=== PATIENT | male | born 1945 | race Hispanic/Latino ===

== ENCOUNTER 2022-07-01 12:35 | Observation (INO) | payer MEDICARE ==
[~2022-07-01] VITALS: Ht 172.7 cm; Wt 68.0 kg
[2022-07-01 13:17] LABS: BASOPHILS # (AUTO) 0.1 (0.0-0.1); BASOPHILS % 0.9 % (0.0-1.0); EOSINOPHILS # (AUTO) 0.4 (0.0-0.4); EOSINOPHILS % 4.5 % (0.0-6.0); LYMPHOCYTES # (AUTO) 2.3 (1.0-3.2); LYMPHOCYTES % 23.4 % (18.0-39.1); MEAN CORPUSCULAR HGB CONC 27.3 g/dL (31-35); MEAN CORPUSCULAR VOLUME 62.3 fL (81-99); MONOCYTES % 10.5 % (4.4-11.3); NEUTROPHILS # (AUTO) 5.8 (2.1-6.9); NEUTROPHILS % 60.4 % (38.7-80.0); PLATELET COUNT 517 x10e3/uL (140-360); RED BLOOD COUNT 3.53 x10e6/uL (4.3-5.7); RED CELL DISTRIBUTION WIDTH 21.2 % (11.7-14.4)
[2022-07-01 13:42] LABS: ALBUMIN 3.4 g/dL (3.5-5.0); ALBUMIN/GLOBULIN RATIO 0.9 (0.8-2.0); ANION GAP 11.4 mmol/L (8-16); CALCIUM 8.3 mg/dL (8.4-10.2); CREATININE, SERUM 0.89 mg/dL (0.72-1.25); POTASSIUM 4.4 mmol/L (3.5-5.1)
[2022-07-01 14:46] LABS: CLARITY,URINE CLEAR (CLEAR); COLOR,URINE YELLOW (YELLOW)
[2022-07-01 14:47] LABS: KETONES,URINE NEGATIVE (NEGATIVE); LEUKOCYTE ESTERASE ,URINE NEGATIVE (NEGATIVE); NITRITE,URINE NEGATIVE (NEGATIVE); PROTEIN,URINE DIPSTICK NEGATIVE (NEGATIVE); URINE UROBILINOGEN 0.2 mg/dL (0.2 - 1)
[2022-07-01 14:55] LABS: MICROCYTOSIS MODERATE; PLATELET MORPHOLOGY COMMENT NORMAL
[2022-07-01 14:56] LABS: PLATELET ESTIMATE MODERATELY INCREASED
[2022-07-01 14:58] LABS: WBC,URINE (MAN) 0-5 /HPF (0-5)
[2022-07-01] MEDS ORDERED: SODIUM CHLORIDE FLUSH 10 ML SYR INJ PRN (15:00)
[2022-07-01] MEDS ORDERED: ONDANSETRON HCL INJ 2MG/ML 2ML 2 MG/ML VIAL IV PRN (15:00)
[2022-07-01] MEDS ORDERED: SODIUM CHLORIDE 0.9% 250ML 250 ML IV ONE (15:30)
[2022-07-01 16:30] VITALS: BP 132/59
[2022-07-01] MEDS ORDERED: GLIPIZIDE ER5 MG PO (17:38)
[2022-07-01] MEDS ORDERED: LOVASTATIN10 MG PO (17:38)
[2022-07-01] MEDS ORDERED: COREG6.25 MG PO (17:38)
[2022-07-01] MEDS ORDERED: SODIUM CHLORIDE 0.9% 250ML 0 ML ONE (19:49)
[2022-07-01] MEDS ORDERED: SODIUM CHLORIDE 0.9% 250ML 250 ML ONE (19:54)
[2022-07-01 20:00] VITALS: BP 137/52
[2022-07-02] VITALS (10 sets, daily range): BP systolic 133–189; BP diastolic 57–78
[2022-07-02 05:15] LABS: BASOPHILS # (AUTO) 0.1 (0.0-0.1); BASOPHILS % 0.8 % (0.0-1.0); EOSINOPHILS # (AUTO) 0.5 (0.0-0.4); EOSINOPHILS % 5.4 % (0.0-6.0); HEMATOCRIT 29.3 % (38.2-49.6); HEMOGLOBIN 8.8 g/dL (14.0-18.0); LYMPHOCYTES # (AUTO) 2.3 (1.0-3.2); LYMPHOCYTES % 23.7 % (18.0-39.1); MEAN CORPUSCULAR HEMOGLOBIN 19.9 pg (28-32); MEAN CORPUSCULAR VOLUME 66.3 fL (81-99); MONOCYTES % 10.5 % (4.4-11.3); NEUTROPHILS # (AUTO) 5.7 (2.1-6.9); NEUTROPHILS % 59.3 % (38.7-80.0); PLATELET COUNT 438 x10e3/uL (140-360); RED BLOOD COUNT 4.42 x10e6/uL (4.3-5.7); RED CELL DISTRIBUTION WIDTH 24.8 % (11.7-14.4)
[2022-07-02 05:31] LABS: ANION GAP 10.8 mmol/L (8-16); CALCIUM 8.5 mg/dL (8.4-10.2); CREATININE, SERUM 0.77 mg/dL (0.72-1.25); POTASSIUM 3.8 mmol/L (3.5-5.1)
[2022-07-02 05:50] LABS: MAGNESIUM 1.7 MG/DL (1.3-2.1); PHOSPHORUS 2.6 MG/DL (2.3-4.7)
[2022-07-02 06:03] LABS: CHOL/HDL RATIO 3.1 (3.9-4.7)
[2022-07-02] MEDS: CARVEDILOL 3.125 MG TAB PO SCH ×2 (08:42→17:06)
[2022-07-02] MEDS ORDERED: NON-FORMULARY MEDICATION (Lovastatin 20 MG) PO SCH (09:00)
[2022-07-02 15:15] LABS: FERRITIN 12.34 ng/mL (21.81-274.66)
[2022-07-02] MEDS ORDERED: SIMVASTATIN 20 MG TAB PO SCH (21:00)
[2022-07-03] VITALS: BP 135/58
[2022-07-03 04:00] VITALS: BP 150/78
[2022-07-03 05:23] LABS: HEMATOCRIT 31.5 % (38.2-49.6); HEMOGLOBIN 9.4 g/dL (14.0-18.0)
[2022-07-03 05:54] LABS: MAGNESIUM 1.7 MG/DL (1.3-2.1); PHOSPHORUS 2.9 MG/DL (2.3-4.7)
[2022-07-03] MEDS ORDERED: PANTOPRAZOLE SOD 40 MG TABEC PO SCH (07:30)
[2022-07-03 08:30] VITALS: BP 149/95
[2022-07-03 08:32] VITALS: BP 149/95
[2022-07-03] MEDS: CARVEDILOL 3.125 MG TAB PO SCH ×2 (09:13→16:25)
[2022-07-03 11:49] VITALS: BP 97/57
[2022-07-03] MEDS ORDERED: PANTOPRAZOLE SO40 MG PO (15:21)
[2022-07-03] MEDS ORDERED: ONDANSETRON HCL 4 MG ORAL DISINTEGRATING TAB PO PRN (16:00)
[2022-07-03 16:06] VITALS: BP 160/62
== END 2022-07-03 17:15 | disposition home or self-care (01) ==
LOC: ER 12:40 → ERHOLD 14:55 → MED/SURG3 16:12
PROVIDERS: ADMIT Internal Medicine; ATTEND Internal Medicine
DX: D64.9 Anemia, unspecified (principal); R41.82 Altered mental status, unspecified; I10 Essential (primary) hypertension; E78.5 Hyperlipidemia, unspecified; E11.9 Type 2 diabetes mellitus without complications; I69.351 Hemiplegia and hemiparesis following cerebral infarction affecting right dominant side; Z20.822 Contact with and (suspected) exposure to COVID-19
CPT/HCPCS: 36415 ×2; 36430; 70450; 71045; 80048; 80053; 80061; 81001; 82140; 82607; 82728; 82948 ×3; 83036; 83540; 83735 ×2; 84100 ×2; 84466; 84484; 85014; 85018; 85025 ×2; 86850; 86900; 86920; 93005; 94760; 96360; 97116 ×2; 97163; 97530 ×2; 99284; C9113; G0378 ×3; J7050; P9016; S0164; U0002

== ENCOUNTER 2022-09-25 07:25 | Inpatient (IN) | payer MEDICARE ==
[~2022-09-25] VITALS: Ht 172.7 cm; Wt 60.9 kg
[2022-09-25] VITALS (20 sets, daily range): BP systolic 109–165; BP diastolic 54–131
[~2022-09-25 07:25] MED LIST: COREG6.25 MG PO; GLIPIZIDE ER5 MG PO; LOVASTATIN10 MG PO; PANTOPRAZOLE SO40 MG PO; VIT B12 PO; VIT D PO
[2022-09-25 10:26] LABS: HEMATOCRIT 25.4 % (38.2-49.6); HEMOGLOBIN 7.3 g/dL (14.0-18.0)
[2022-09-25] MEDS ORDERED: MINERAL OIL STERILE 10ML VIAL ONE (11:27)
[2022-09-25] MEDS ORDERED: ROCURONIUM BROMIDE 10 MG/ML 5ML VIAL IV ONE (12:25)
[2022-09-25] MEDS ORDERED: POVIDONE IODINE 0.05% 0.05 % ML PO ONE (12:25)
[2022-09-25] MEDS ORDERED: NEOSTIGMINE 1 MG/ML 10ML VIAL ONE (12:25)
[2022-09-25] MEDS ORDERED: HYDRALAZINE HCL 20 MG/ML VIAL ONE (12:25)
[2022-09-25] MEDS ORDERED: PROPOFOL IV EMULSION 10 MG/ML 20 ML VIAL ONE (12:25)
[2022-09-25] MEDS ORDERED: GLYCOPYRROLATE INJ 0.2 MG/ML VIAL ONE (12:25)
[2022-09-25] MEDS ORDERED: LIDOCAINE HCL 2% LOCAL INJ 5 ML SDV VIAL INJ ONE (12:25)
[2022-09-25] MEDS ORDERED: SEVOFLURANE INHAL SOLN 250 ML PEN BTL ONE (12:25)
[2022-09-25] MEDS ORDERED: METOCLOPRAMIDE HCL 10 MG/2ML VIAL ONE (12:25)
[2022-09-25] MEDS ORDERED: ONDANSETRON HCL INJ 2MG/ML 2ML 2 MG/ML VIAL ONE (12:25)
[2022-09-25] MEDS ORDERED: SUGAMMADEX SODIUM 200 MG/2 ML VIAL IV ONE (13:54)
[2022-09-25] MEDS ORDERED: SODIUM CHLORIDE 0.9% 1000ML 1,000 ML IV SCH (14:00)
[2022-09-25] MEDS ORDERED: HYDROMORPHONE 1MG/1ML INJ IV PRN (14:00)
[2022-09-25] MEDS ORDERED: ONDANSETRON HCL INJ 2MG/ML 2ML 2 MG/ML VIAL IV PRN ×2 (14:00→15:45)
[2022-09-25] MEDS ORDERED: ACETAMINOPHEN 1000 MG/100 ML IV PRN (14:00)
[2022-09-25] MEDS ORDERED: SODIUM CHLORIDE 0.9% 250ML IRRIG IR SCH (14:00)
[2022-09-25] MEDS ORDERED: HYDROMORPHONE 1MG/1ML INJ ONE (14:42)
[2022-09-25] MEDS: SODIUM CHLORIDE 0.9% 250ML IRRIG IR SCH ×3 (14:45→22:22)
[2022-09-25] MEDS ORDERED: DEXTROSE 50% SYRINGE 50 ML IV PRN (16:45)
[2022-09-25] MEDS ORDERED: CARVEDILOL 3.125 MG TAB PO SCH (17:00)
[2022-09-25] MEDS: CARVEDILOL 3.125 MG TAB PO SCH (17:31)
[2022-09-25] MEDS: SODIUM CHLORIDE 0.9% 1000ML 1,000 ML IV SCH (17:32)
[2022-09-25] MEDS ORDERED: FENTANYL CITRATE/PF 100MCG/2 ML INJ ONE (17:35)
[2022-09-25] MEDS: HYDROMORPHONE 1MG/1ML INJ IV PRN (17:36)
[2022-09-25] MEDS ORDERED: INSULIN REGULAR, HUMAN 100 UNIT/1 ML SQ SCH (18:00)
[2022-09-25] MEDS: INSULIN REGULAR, HUMAN 100 UNIT/1 ML SQ SCH (18:00)
[2022-09-25] MEDS: ACETAMINOPHEN 1000 MG/100 ML IV PRN (19:51)
[2022-09-26] VITALS (41 sets, daily range): BP systolic 126–189; BP diastolic 55–153
[2022-09-26] MEDS: HYDROMORPHONE 1MG/1ML INJ IV PRN ×4 (00:08→22:00)
[2022-09-26] MEDS: SODIUM CHLORIDE 0.9% 250ML IRRIG IR SCH ×6 (01:00→22:45)
[2022-09-26] MEDS: SODIUM CHLORIDE 0.9% 1000ML 1,000 ML IV SCH ×2 (01:00→14:36)
[2022-09-26] MEDS: ACETAMINOPHEN 1000 MG/100 ML IV PRN (02:36)
[2022-09-26] MEDS: INSULIN REGULAR, HUMAN 100 UNIT/1 ML SQ SCH ×4 (06:00→18:00)
[2022-09-26] MEDS: CARVEDILOL 3.125 MG TAB PO SCH ×2 (12:00→19:26)
[2022-09-26] MEDS ORDERED: CLONIDINE HCL 0.1 MG/24 HR 1 EA PATCH TOP SCH (14:00)
[2022-09-26 14:09] LABS: BASOPHILS % 0.2 % (0.0-1.0); EOSINOPHILS % 0.1 % (0.0-6.0); HEMATOCRIT 33.5 % (38.2-49.6); HEMOGLOBIN 10.8 g/dL (14.0-18.0); LYMPHOCYTES # (AUTO) 1.4 (1.0-3.2); LYMPHOCYTES % 10.9 % (18.0-39.1); MEAN CORPUSCULAR HEMOGLOBIN 23.8 pg (28-32); MEAN CORPUSCULAR HGB CONC 32.2 g/dL (31-35); MONOCYTES # (AUTO) 0.9 (0.2-0.8); MONOCYTES % 7.5 % (4.4-11.3); NEUTROPHILS # (AUTO) 10.1 (2.1-6.9); NEUTROPHILS % 80.7 % (38.7-80.0); PLATELET COUNT 436 x10e3/uL (140-360); RED BLOOD COUNT 4.53 x10e6/uL (4.3-5.7); RED CELL DISTRIBUTION WIDTH 19.7 % (11.7-14.4)
[2022-09-26 14:22] LABS: ANION GAP 13.7 mmol/L (8-16); CALCIUM 8.6 mg/dL (8.4-10.2); CREATININE, SERUM 0.75 mg/dL (0.72-1.25); POTASSIUM 3.7 mmol/L (3.5-5.1)
[2022-09-26] MEDS: NICARDIPINE 20MG/200ML PREMIX 200 ML IV SCH (21:46)
[2022-09-26] MEDS: INSULIN GLARGINE 100 UNITS/ML VIAL SQ SCH (21:47)
[2022-09-27] VITALS (50 sets, daily range): BP systolic 110–166; BP diastolic 49–107
[2022-09-27] MEDS: SODIUM CHLORIDE 0.9% 250ML IRRIG IR SCH ×3 (02:35→10:45)
[2022-09-27] MEDS: SODIUM CHLORIDE 0.9% 1000ML 1,000 ML IV SCH ×3 (02:35→16:52)
[2022-09-27 04:57] LABS: BASOPHILS % 0.2 % (0.0-1.0); EOSINOPHILS % 0.1 % (0.0-6.0); HEMATOCRIT 36.3 % (38.2-49.6); HEMOGLOBIN 11.4 g/dL (14.0-18.0); LYMPHOCYTES # (AUTO) 1.7 (1.0-3.2); MEAN CORPUSCULAR HEMOGLOBIN 24.2 pg (28-32); MEAN CORPUSCULAR HGB CONC 31.4 g/dL (31-35); MEAN CORPUSCULAR VOLUME 76.9 fL (81-99); MONOCYTES # (AUTO) 1.2 (0.2-0.8); MONOCYTES % 8.2 % (4.4-11.3); NEUTROPHILS # (AUTO) 11.2 (2.1-6.9); NEUTROPHILS % 79.1 % (38.7-80.0); PLATELET COUNT 449 x10e3/uL (140-360); RED BLOOD COUNT 4.72 x10e6/uL (4.3-5.7); RED CELL DISTRIBUTION WIDTH 19.7 % (11.7-14.4)
[2022-09-27 05:16] LABS: ALBUMIN 3.2 g/dL (3.5-5.0); ALBUMIN/GLOBULIN RATIO 0.9 (0.8-2.0); ANION GAP 17.6 mmol/L (8-16); CALCIUM 8.7 mg/dL (8.4-10.2); CREATININE, SERUM 0.73 mg/dL (0.72-1.25); POTASSIUM 3.6 mmol/L (3.5-5.1)
[2022-09-27] MEDS: NICARDIPINE 20MG/200ML PREMIX 200 ML IV SCH (05:35)
[2022-09-27] MEDS: INSULIN REGULAR, HUMAN 100 UNIT/1 ML SQ SCH ×4 (05:36→17:59)
[2022-09-27] MEDS: CARVEDILOL 3.125 MG TAB PO SCH ×2 (08:26→16:37)
[2022-09-27 10:35] LABS: % IRON SATURATION 4 % (15-50); IRON 15 ug/dL (65-175); TOTAL IRON BINDING CAPACITY 414 ug/dL (261-478); TRANSFERRIN 296 mg/dL (174-364)
[2022-09-27] MEDS: HYDROMORPHONE 1MG/1ML INJ IV PRN ×2 (10:47→15:37)
[2022-09-27] MEDS: BISACODYL 10 MG SUPP PR SCH (21:23)
[2022-09-27] MEDS: INSULIN GLARGINE 100 UNITS/ML VIAL SQ SCH (21:29)
[2022-09-28] VITALS (11 sets, daily range): BP systolic 128–190; BP diastolic 57–139
[2022-09-28] MEDS: HYDROMORPHONE 1MG/1ML INJ IV PRN ×2 (00:26→07:51)
[2022-09-28] MEDS: SODIUM CHLORIDE 0.9% 1000ML 1,000 ML IV SCH ×2 (01:05→12:18)
[2022-09-28] MEDS: INSULIN REGULAR, HUMAN 100 UNIT/1 ML SQ SCH ×4 (06:00→18:06)
[2022-09-28 07:50] LABS: BASOPHILS % 0.2 % (0.0-1.0); EOSINOPHILS # (AUTO) 0.1 (0.0-0.4); EOSINOPHILS % 0.8 % (0.0-6.0); HEMATOCRIT 37.3 % (38.2-49.6); HEMOGLOBIN 11.3 g/dL (14.0-18.0); LYMPHOCYTES # (AUTO) 1.7 (1.0-3.2); LYMPHOCYTES % 12.2 % (18.0-39.1); MEAN CORPUSCULAR HEMOGLOBIN 23.7 pg (28-32); MEAN CORPUSCULAR HGB CONC 30.3 g/dL (31-35); MEAN CORPUSCULAR VOLUME 78.4 fL (81-99); MONOCYTES # (AUTO) 1.1 (0.2-0.8); NEUTROPHILS % 78.4 % (38.7-80.0); PLATELET COUNT 417 x10e3/uL (140-360); RED BLOOD COUNT 4.76 x10e6/uL (4.3-5.7)
[2022-09-28 08:02] LABS: ALBUMIN/GLOBULIN RATIO 0.8 (0.8-2.0); ANION GAP 16.3 mmol/L (8-16); CALCIUM 8.8 mg/dL (8.4-10.2); CREATININE, SERUM 0.73 mg/dL (0.72-1.25); POTASSIUM 3.3 mmol/L (3.5-5.1)
[2022-09-28] MEDS: BISACODYL 10 MG SUPP PR SCH (08:02)
[2022-09-28] MEDS: CARVEDILOL 3.125 MG TAB PO SCH ×2 (08:02→17:56)
[2022-09-28] MEDS ORDERED: POTASSIUM CHLORIDE 20MEQ/100ML 100 ML IV ONE (12:30)
[2022-09-28] MEDS ORDERED: HYDROCODONE/APAP 5MG-325MG TAB PO PRN (17:45)
[2022-09-28] MEDS: INSULIN GLARGINE 100 UNITS/ML VIAL SQ SCH (20:36)
[2022-09-29] VITALS (8 sets, daily range): BP systolic 117–183; BP diastolic 57–86
[2022-09-29] MEDS: SODIUM CHLORIDE 0.9% 1000ML 1,000 ML IV SCH ×2 (01:18→22:55)
[2022-09-29] MEDS: INSULIN REGULAR, HUMAN 100 UNIT/1 ML SQ SCH ×4 (06:00→17:33)
[2022-09-29] MEDS: CARVEDILOL 3.125 MG TAB PO SCH ×2 (12:15→21:53)
[2022-09-29] MEDS: INSULIN GLARGINE 100 UNITS/ML VIAL SQ SCH (21:16)
[2022-09-30] VITALS (8 sets, daily range): BP systolic 130–177; BP diastolic 55–76
[2022-09-30] MEDS: INSULIN REGULAR, HUMAN 100 UNIT/1 ML SQ SCH ×4 (06:00→18:22)
[2022-09-30] MEDS: CARVEDILOL 3.125 MG TAB PO SCH ×2 (08:44→20:58)
[2022-09-30] MEDS: INSULIN GLARGINE 100 UNITS/ML VIAL SQ SCH (20:54)
[2022-10-01] VITALS (8 sets, daily range): BP systolic 107–183; BP diastolic 49–71
[2022-10-01] MEDS: SODIUM CHLORIDE 0.9% 1000ML 1,000 ML IV SCH ×2 (01:28→23:51)
[2022-10-01] MEDS: INSULIN REGULAR, HUMAN 100 UNIT/1 ML SQ SCH ×4 (06:00→18:00)
[2022-10-01 06:27] LABS: BASOPHILS % 0.5 % (0.0-1.0); EOSINOPHILS # (AUTO) 0.5 (0.0-0.4); HEMATOCRIT 30.1 % (38.2-49.6); HEMOGLOBIN 9.5 g/dL (14.0-18.0); LYMPHOCYTES % 27.1 % (18.0-39.1); MEAN CORPUSCULAR HEMOGLOBIN 23.6 pg (28-32); MEAN CORPUSCULAR HGB CONC 31.6 g/dL (31-35); MEAN CORPUSCULAR VOLUME 74.7 fL (81-99); MONOCYTES # (AUTO) 0.8 (0.2-0.8); MONOCYTES % 10.6 % (4.4-11.3); NEUTROPHILS # (AUTO) 4.1 (2.1-6.9); NEUTROPHILS % 55.3 % (38.7-80.0); PLATELET COUNT 326 x10e3/uL (140-360); RED BLOOD COUNT 4.03 x10e6/uL (4.3-5.7); RED CELL DISTRIBUTION WIDTH 20.3 % (11.7-14.4)
[2022-10-01 06:35] LABS: ANION GAP 13.3 mmol/L (8-16); CALCIUM 8.3 mg/dL (8.4-10.2); CREATININE, SERUM 0.75 mg/dL (0.72-1.25); POTASSIUM 3.3 mmol/L (3.5-5.1)
[2022-10-01] MEDS: CARVEDILOL 3.125 MG TAB PO SCH ×2 (10:14→22:04)
[2022-10-01] MEDS: BISACODYL 10 MG SUPP PR SCH (22:04)
[2022-10-01] MEDS: INSULIN GLARGINE 100 UNITS/ML VIAL SQ SCH (22:05)
[2022-10-02] VITALS: BP 167/65
[2022-10-02 04:00] VITALS: BP 147/64
[2022-10-02] MEDS: INSULIN REGULAR, HUMAN 100 UNIT/1 ML SQ SCH ×3 (06:00→12:00)
[2022-10-02] MEDS: BISACODYL 10 MG SUPP PR SCH (08:00)
[2022-10-02 08:05] VITALS: BP 135/58
[2022-10-02 08:22] VITALS: BP 135/58
[2022-10-02] MEDS: CARVEDILOL 3.125 MG TAB PO SCH (09:02)
[2022-10-02] MEDS ORDERED: CATAPRES-TTS 11 EACH TOP (10:05)
[2022-10-02 12:05] VITALS: BP 122/63
[2022-10-02 12:12] VITALS: BP 130/58
[2022-10-02] MEDS ORDERED: ONDANSETRON HCL 4 MG ORAL DISINTEGRATING TAB PO PRN (15:15)
[2022-10-02] MEDS ORDERED: PANTOPRAZOLE SOD 40 MG TABEC PO SCH (16:00)
== END 2022-10-02 15:06 | disposition home or self-care (01) | DRG 330 ==
LOC: OR 07:25 → ICU 15:05 → OR 15:30 → MED/SURG 09-28 12:38
PROVIDERS: ADMIT Surgery; ATTEND Surgery
PROC: 0DBN0ZZ Excision of Sigmoid Colon, Open Approach (ICD-10-PCS; 2022-09-25)
PROC: 0DTP0ZZ Resection of Rectum, Open Approach (ICD-10-PCS; principal; 2022-09-25 10:34)
DX: C19 Malignant neoplasm of rectosigmoid junction (principal); I69.351 Hemiplegia and hemiparesis following cerebral infarction affecting right dominant side; I10 Essential (primary) hypertension; E11.9 Type 2 diabetes mellitus without complications; G89.18 Other acute postprocedural pain; Z20.822 Contact with and (suspected) exposure to COVID-19; E78.5 Hyperlipidemia, unspecified; K21.9 Gastro-esophageal reflux disease without esophagitis
CPT/HCPCS: 0223U; 36415; 71045; 80048; 80053; 82948; 83540; 84466; 85014; 85018; 85025; 86850; 86900; 86920; 88305; 88309; 88342; 94799; 96360; J0360; J0694; J1170; J1815; J2001; J2405; J2710; J2765; J3010; J3480; J7030; P9016